=== PATIENT | female | born 1960 | race Caucasian/White ===

== ENCOUNTER 2017-06-28 06:23 | Day surgery (SDC) | payer OTHER ==
[~2017-06-28] VITALS: Ht 147.3 cm; Wt 74.8 kg
[~2017-06-28 06:23] MED LIST: ORACEA40 MG PO; RESTASIS MULTI5.5 ML BOTH EYES; VENTOLIN HFA18 GM IH
[2017-06-28 07:01] VITALS: BP 139/79
[2017-06-28] MEDS ORDERED: PERCOCET 5/31 TABLET PO (10:15)
[2017-06-28 11:30] VITALS: BP 147/79
[2017-06-28 12:30] VITALS: BP 127/78
[2017-06-28 12:52] VITALS: BP 135/80
== END 2017-06-28 13:10 | disposition home or self-care (01) ==
LOC: SDC 06:23
PROC: 0WUF4JZ Supplement Abdominal Wall with Synthetic Substitute, Percutaneous Endoscopic Approach (ICD-10-PCS; principal; 2017-06-28)
DX: K42.0 Umbilical hernia with obstruction, without gangrene (principal); K43.6 Other and unspecified ventral hernia with obstruction, without gangrene; E78.5 Hyperlipidemia, unspecified; J45.909 Unspecified asthma, uncomplicated; Z98.51 Tubal ligation status; H04.129 Dry eye syndrome of unspecified lacrimal gland; R32 Unspecified urinary incontinence; Z91.030 Bee allergy status; Z88.1 Allergy status to other antibiotic agents; Z80.3 Family history of malignant neoplasm of breast; Z83.3 Family history of diabetes mellitus; Z82.49 Family history of ischemic heart disease and other diseases of the circulatory system; Z80.1 Family history of malignant neoplasm of trachea, bronchus and lung
CPT/HCPCS: C1781; J0131; J0330; J0690; J1100; J1170; J2250; J2405; J2710; J3010; Q0175